=== PATIENT | female | born 1970 | race Caucasian/White ===

== ENCOUNTER → 2018-05-25 | Outpatient (CLI) | payer OTHER | LOC: FIMAGING 13:01 | DX: R92.0 Mammographic microcalcification found on diagnostic imaging of breast (principal) ==

== ENCOUNTER → 2018-07-06 | Outpatient (CLI) | payer OTHER ==
[~2018-07-06] MED LIST: GADOBUTROL 10 ML VIAL IVP ONE
== END ==
LOC: FIMAGING 14:05
PROVIDERS: ATTEND Surgery
DX: D05.11 Intraductal carcinoma in situ of right breast (principal); R59.0 Localized enlarged lymph nodes
CPT/HCPCS: 0159T; 77059; A9585; C8908

== ENCOUNTER → 2018-07-07 | Outpatient (CLI) | payer OTHER ==
[~2018-07-07] MED LIST changes: -GADOBUTROL 10 ML VIAL IVP ONE; +LIDOCAINE 1% 300 MG/30 ML SDV ONE
== END ==
LOC: FIMAGING 13:44
PROVIDERS: ATTEND Surgery
PROC: 07B53ZX Excision of Right Axillary Lymphatic, Percutaneous Approach, Diagnostic (ICD-10-PCS; principal; 2018-07-07)
DX: C77.3 Secondary and unspecified malignant neoplasm of axilla and upper limb lymph nodes (principal); C50.911 Malignant neoplasm of unspecified site of right female breast

== ENCOUNTER → 2018-12-06 | Outpatient (CLI) | payer OTHER ==
[~2018-12-06] MED LIST changes: +GADOBUTROL 10 ML VIAL IVP ONE; -LIDOCAINE 1% 300 MG/30 ML SDV ONE
== END ==
LOC: FIMAGING 09:21
PROVIDERS: ATTEND Surgery
DX: C50.919 Malignant neoplasm of unspecified site of unspecified female breast (principal)
CPT/HCPCS: A9585; C8908

== ENCOUNTER 2018-12-14 06:37 | Observation (INO) | payer OTHER ==
[2018-12-14] MEDS ORDERED: ceFAZolin 2 GM/DEXTROSE 100 ML IV ONE (06:43)
[2018-12-14] MEDS ORDERED: LR 1,000 ML IV ONE (06:44)
[2018-12-14] MEDS ORDERED: CEFAZOLIN 2 GM/DEXTROSE/100 ML BAG IV ONE (06:49)
[2018-12-14] MEDS ORDERED: BUPIVACAINE 0.25% 30 ML SDV ONE (06:59)
[2018-12-14] MEDS ORDERED: EPINEPHrine 1 MG/ML INJ ONE (07:00)
--- NOTE | 2018-12-14 08:52 | PDHPUP ---
History & Physical Update H&P update statement: This history and physical update is based on an assessment of the patient which was completed after admission or registration (within 24 hours), but prior to the surgery/procedure. H&P update: H&P reviewed & patient examined, no change in patient's condition since H&P completed
--- NOTE | 2018-12-14 09:20 | PDANEPAE ---
ANE History of Present Illness right sided mastectomy, for breast CA ANE Past Medical History - Cardiovascular History Hx Hypertension: No Hx Arrhythmias: No Hx Chest Pain: No Hx Coronary Artery / Peripheral Vascular Disease: No Hx CHF / Valvular Disease: No Hx Palpitations: No Cardiovascular History Comment: BP RUNS LOW. MOTHER HAS ATRIAL FIB - Pulmonary History Hx COPD: No Hx Asthma/Reactive Airway Disease: No Hx Recent Upper Respiratory Infection: No Hx Oxygen in Use at Home: No Hx Sleep Apnea: No Sleep Apnea Screening Result - Last Documented: Negative Pulmonary History Comment: PNA AT AGE 17. RECENTLY TESTED POS MICOPLASMA PNA IN JUL & OCT - ASYMPTOMATIC - Neurologic History Hx Cerebrovascular Accident: No Hx Seizures: No Hx Dementia: No Neurologic History Comment: MIGRAINES IN PAST - Endocrine History Hx Diabetes: No - Renal History Hx Renal Disorders: No - Liver History Hx Hepatic Disorders: No Hepatic History Comment: SL ELEV LIVER ENZYMES - Neurological & Psychiatric Hx Hx Neurological and Psychiatric Disorders: No - Cancer History Hx Cancer: Yes Cancer History Comment: BREAST CA. 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 COLONOSCOPY. BIOPSIES JORGE BREAST & AXILLA ANE Review of Systems Review of Systems: - Exercise capacity METS (RN): 4 METS ANE Patient History - Allergies Allergies/Adverse Reactions: gluten Allergy (Verified 12/11/18 15:23) Milk Containing Products [dairy] Allergy (Verified 12/11/18 15:23) prednisone Allergy (Verified 12/11/18 15:23) Sugars, Metabolically Active Allergy (Verified 12/11/18 15:23) - Home Medications Home Medications: Herbals/Supplements -Info Only 12/11/18 [Last Taken 12/13/18] Welchol 12/11/18 [Last Taken 12/13/18] - NPO status NPO Since - Liquids (Date): 12/14/18 NPO Since - Liquids (Time): 06:00 NPO Since - Solids (Date): 12/13/18 NPO Since - Solids (Time): 20:00 - Smoking Hx Smoking Status: Former smoker - Family Anes Hx Family Hx Anesthesia Complications: NEG ANE Labs/Vital Signs - Vital Signs Blood Pressure: 99/66 Heart Rate: 67 Respiratory Rate: 16 O2 Sat (%): 94 Height: 157.48 cm Weight: 54.431 kg ANE Physical Exam - Airway Neck exam: FROM Mallampati Score: Class 1 Mouth exam: normal dental/mouth exam - Pulmonary Pulmonary: no respiratory distress, no rales or rhonchi - Cardiovascular Cardiovascular: regular rate and rhythym, no murmur, rub, or gallop - ASA Status ASA Status: II ANE Anesthesia Plan Anesthesia Plan: GA w LMA, GA with mask
[2018-12-14] MEDS ORDERED: LIDOCAINE 2% 100 MG/5 ML SYR ONE (09:26)
[2018-12-14] MEDS ORDERED: PROPOFOL/EMULSION 500 MG/50 ML BOTTLE IV ONE ×3 (09:26→09:52)
[2018-12-14] MEDS ORDERED: fentaNYL 250 MCG/5 ML INJ ONE (09:27)
[2018-12-14] MEDS ORDERED: LIDOCAINE 2% 5 ML SDV ONE (09:29)
[2018-12-14] MEDS ORDERED: ONDANSETRON 4 MG/2 ML VIAL ONE ×2 (10:08)
[2018-12-14] MEDS ORDERED: DEXAMETHASONE 4 MG/ML VIAL ONE ×2 (10:09)
[2018-12-14] MEDS ORDERED: KETOROLAC 30 MG/1 ML SDV ONE (10:09)
[2018-12-14] MEDS ORDERED: HYDROmorphONE/DILAUDID 2 MG/ML INJ ONE (11:13)
[2018-12-14] MEDS ORDERED: MEPERIDINE 25 MG/0.5 ML AMP IVP PRN (11:16)
[2018-12-14] MEDS ORDERED: DIAZEPAM 5 MG/ML 1 ML SYR IVP PRN (11:16)
[2018-12-14] MEDS ORDERED: HYDROmorphONE/DILAUDID 2 MG/ML INJ IVP PRN (11:16)
[2018-12-14] MEDS ORDERED: HYDROCODONE/APAP 5/325 TAB PO PRN ×2 (11:16→11:56)
[2018-12-14] MEDS ORDERED: NALOXONE HCL 0.4 MG/ML INJ IVP PRN (11:16)
[2018-12-14] MEDS ORDERED: LR 500 ML IV PRN (11:16)
[2018-12-14] MEDS ORDERED: fentaNYL 100 MCG/2 ML INJ IVP PRN (11:16)
[2018-12-14] MEDS ORDERED: PROPOFOL 200 MG/20 ML VIAL ONE (11:24)
[2018-12-14] MEDS ORDERED: ACETAMINOPHEN 325 MG TAB PO PRN (11:56)
[2018-12-14] MEDS ORDERED: ONDANSETRON 4 MG/2 ML VIAL IVP PRN (11:56)
[2018-12-14] MEDS ORDERED: TEMAZEPAM 15 MG CAP PO PRN (11:56)
--- NOTE | 2018-12-14 11:56 | POSTOPPROG ---
Post Op Note Date of Operation: 12/14/18 Surgeon: Antonio Angel (, FACS) Online Affiliate Marketing Manager: DMITRY Thomas-III Anesthesiologist: Yue Milligan DO Anesthesia: LMA Pre-op Diagnosis: right breast cancer Post-op Diagnosis: same Procedure: right total mastectomy/SLN mapping and SALND Findings: 4 sentinel nodes and right breast submitted for permanent section Inf/Abcess present in the surg proc area at time of surgery?: No EBL: 50-100 (50) Drains: Greg Quezada (x2)
[2018-12-14] MEDS ORDERED: LR 1,000 ML IV SCH (12:00)
--- NOTE | 2018-12-14 15:01 | POSTANESTH ---
Post Anesthetic Evaluation Cardiovascular Status: Normal, Stable Respiratory Status: Normal, Stable Level of Consciousness/Mental Status: Can Participate in Eval, Alert and Oriented Pain Control: Adequate, Prn Tx Ordered Nausea/Vomiting Control: Adequate, Prn Tx Ordered Complications Possibly Related to Anesthesia: None Noted
[2018-12-14] MEDS: KETOROLAC 15 MG/1 ML SDV IVP SCH ×2 (18:34→22:51)
[2018-12-14] MEDS: ceFAZolin 2 GM/DEXTROSE 100 ML IV SCH (18:38)
[2018-12-15] MEDS: ceFAZolin 2 GM/DEXTROSE 100 ML IV SCH (00:31)
[2018-12-15] MEDS: KETOROLAC 15 MG/1 ML SDV IVP SCH ×2 (05:11→11:42)
[2018-12-15] MEDS ORDERED: ENOXAPARIN 40 MG/0.4 ML SYR SC SCH (09:00)
--- NOTE | 2018-12-15 09:06 | ASMTCMCOM ---
CM Note CM Note Notes: Patient is POD #1 R total mastectomy/SLN mapping and SALND. She is normally independent, lives with her Michael. No d/c needs identified. Current CM Discharge plan: independent Date Signed: 12/15/2018 09:06 AM Electronically Signed By:Jessica Arias RN
--- NOTE | 2018-12-15 11:01 | PDDCSUM ---
Discharge Summary Discharge Summary: #[id number] NISREEN Angel MD, FACS
[2018-12-15 11:49] VITALS: BP 97/60
--- NOTE | 2018-12-15 12:36 | GDS ---
[f rep st] DISCHARGE SUMMARY PREOPERATIVE DIAGNOSIS: Right breast carcinoma. PROCEDURES PERFORMED: 12/14/2018, right total mastectomy with sentinel lymph node mapping and superf icial axillary lymph node dissection. HOSPITAL COURSE: For details of admission history and physical, please see dictated summary. 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 Preoperative MRI showed persistent enhancement bridging an area of approximately 5 cm and total mastectomy was recommended. The patient underwent surgery on the date of admission, 4 sent inel nodes were retrieved, none of which appeared grossly to have any extracapsular extension. Froze n sections were not obtained, as the patient had no plans for axillary dissection. After surgery, th e patient had very little discomfort. She primarily used ketorolac and Tylenol for pain management. The day after surgery, her surgical sites appeared uncomplicated. She was comfortable and tolerating a regular diet. She was instructed in drain care and activity, switched to oral celecoxib (Celebrex ) 200 mg p.o. b.i.d. In addition, was given a prescription for [place] 5/325 one p.o. q.4 hours p.r.n. #10 and will continue Tylenol 1000 mg p.o. q.8 hours p.r.n. in addition to her prior vitamin supplem ents. CONDITION AT TIME OF DISCHARGE: Improved. Followup arranged in my office on Tuesday for a dressing change and possible early drain removal. /[id number]/MODL
--- NOTE | 2018-12-15 15:42 | GOP ---
[f rep st] OPERATIVE REPORT DATE OF OPERATION: SURGEON: Antonio Angel MD SINGLE ENDING MACHINE OPERATOR: YULIA Thomas. ANESTHESIOLOGIST: Gurpreet Milligan DO. PREOPERATIVE DIAGNOSIS: Right breast carcinoma (T3 N1) status post neoadjuvant endocrine therapy. POSTOPERATIVE DIAGNOSIS: Right breast carcinoma (T3 N1) status post neoadjuvant endocrine therapy. PROCEDURE PERFORMED: 1. Right total mastectomy. 2. [place] lymph node mapping and superficial axillary lymph node dissection. FINDINGS: 1. 4 sentinel nodes submitted for permanent section, none of which appeared particularly suspicious for metastatic disease. 2. Right total mastectomy specimen submitted for permanent section, tagged for orientation. ESTIMATED BLOOD LOSS: 50 mL. DESCRIPTION OF PROCEDURE: After informed consent was obtained, the patient was brought to the operat ing room and placed supine with the right arm extended. The chest wall was prepped and draped in usu al fashion after laryngeal mask anesthesia was induced. Before proceeding, a time-out and identifica tion of the patient was performed. 0.25% Marcaine was used to establish an intercostal block from the 4th through 8th intercostal spaces in the mid axillary line. After this had been performed, the mastectomy incision was made in an ell iptical fashion encompassing the nipple-areolar complex through the skin subcutaneous tissues. The r emainder of the dissection was performed with cautery the skin and superficial subcutaneou s tissues from the underlying breast tissue. Dissection was carried out cephalad to the infraclavicu lar fossa, medially the sternal border, inferiorly to the inframammary fold and laterally to the ante rior border of the latissimus. The breast was then from the underlying pectoralis using ca utery dissection including the pectoralis fascia. Dissection was carried out lateral to the pectoral is over the course of the serratus and stopping at the latissimus border. Dissection was carried out cephalad to the axilla. Hemostasis was secured with cautery and hemoclips. The Neoprobe was used t o interrogate the axillary tail and lower axilla and the 1st of 4 sentinel nodes was identified. Thi s had counts in excess of 800 and appeared to represent a mildly enlarged lymph node measuring 1 x. 1 .5 cm. This was removed and submitted for permanent section as the patient had no plans on proceedin g with axillary dissection if she had positive nodes. Three additional nodes in the mid to upper level 1 chain met criteria to be included as sentinel node s and were dissected from the surrounding fibrofatty tissue of the axilla. Hemostasis was secured wi th hemoclips and cautery. Specimens were submitted for permanent section. The thoracodorsal and puja g thoracic nerve of Godfrey were preserved as well as the lowest branch of the intercostal brachial nerv e. The breast specimen was detached from the lower axilla, amputating the axillary tail and tagging this for orientation along with the superior margin of the areolar border. Specimens were submitted for permanent section. Hemostasis appeared secure within the cavity. Two 10 mm flat Greg-Quezada d rains were brought out through the inferior skin flap and directed medially and cephalad over the pec toralis and laterally into the axilla. These were secured to the skin with 3-0 nylon suture. The bernardo bcutaneous tissues of the mastectomy incision were closed with 3-0 Monocryl suture. Skin was closed with edinson. Sterile dressings were applied. Patient was returned extubated to the recovery room i n satisfactory condition. Needle, sponge, and instrument count were correct. COMPLICATIONS: None. /[id number]/MODL
== END 2018-12-15 12:47 | disposition home or self-care (01) ==
LOC: FSGY 06:37 → F3N 11:57 → F1N 12:54
PROVIDERS: ADMIT Surgery; ATTEND Surgery
DX: C50.911 Malignant neoplasm of unspecified site of right female breast (principal)
CPT/HCPCS: 19303; 38500; 78195; A9520; G0378; J0171; J0690; J1100; J1170; J1650; J1885; J2001; J2405; J2704; J3010

== ENCOUNTER → 2019-03-20 | Outpatient (CLI) | payer OTHER | LOC: FIMAGING 13:15 | PROVIDERS: ATTEND Nurse Practitioner | DX: I82.612 Acute embolism and thrombosis of superficial veins of left upper extremity (principal); C50.811 Malignant neoplasm of overlapping sites of right female breast; Z17.0 Estrogen receptor positive status [ER+] ==